=== PATIENT | female | born 1990 | race Two or more races ===

== ENCOUNTER 2024-07-23 08:53 | Emergency (ER) | payer OTHER ==
[~2024-07-23] VITALS: Ht 170.2 cm; Wt 133.4 kg
[2024-07-23] MEDS ORDERED: ONDANSETRON HCL 2 MG/ML VIAL ONE (10:07)
[2024-07-23] MEDS ORDERED: FAMOTIDINE/PF 20 MG/2 ML VIAL ONE (10:07)
[2024-07-23] MEDS ORDERED: ONDANSETRON HCL 2 MG/ML VIAL IV ONE (10:15)
[2024-07-23] MEDS ORDERED: 0.9 % SODIUM CHLORIDE 1,000 ML IV ONE (10:15)
[2024-07-23] MEDS ORDERED: FAMOtidine 10 MG/ML (4ML VIAL) IV ONE (10:15)
[2024-07-23 11:08] LABS: HEMOGLOBIN 14.1 g/dL (12.0-15.00); MEAN CELL VOLUME 89.5 fL (80.00-100.00); MEAN CORPUSCULAR HEMOGLOBIN 31.5 pg (27.00-32.0); MEAN CORPUSCULAR HGB CONC 35.2 g/dl (32.0-36.0); PLATELET COUNT 480 K/uL (150-450); RED BLOOD COUNT 4.47 M/uL (4.00-6.00); RED CELL DISTRIBUTION WIDTH 13.6 % (11.5-14.5)
[2024-07-23 11:31] LABS: ALBUMIN 3.9 gm/dL (3.4-5.0); BILIRUBIN TOTAL 0.3 mg/dL (0.3-1.2); CALCIUM 9.3 mg/dL (8.5-10.1); CREATININE SERUM 0.85 mg/dL (0.55-1.02); GFR 76.56; GLOBULINA 4.5 G/DL (2.4-3.5); POTASSIUM 4.32 mEq/L (3.5-5.1); TOTAL PROTEIN 8.4 gm/dL (6.4-8.2)
[2024-07-23] MEDS ORDERED: PROBIOTIC1 EAC2 PO (12:15)
[2024-07-23] MEDS ORDERED: METRONIDAZOLE500 MG PO (12:15)
[2024-07-23] MEDS ORDERED: PEPCID AC20 MG PO (12:15)
[2024-07-23] MEDS ORDERED: ZOFRAN8 MG PO (12:15)
== END 2024-07-23 12:36 | disposition home or self-care (01) ==
LOC: ER 08:56
PROVIDERS: General Practice
DX: K52.89 Other specified noninfective gastroenteritis and colitis (principal); Z20.822 Contact with and (suspected) exposure to COVID-19; Z88.2 Allergy status to sulfonamides; Z88.8 Allergy status to other drugs, medicaments and biological substances